=== PATIENT | male | born 1950 | race Caucasian/White ===

== ENCOUNTER 2019-03-21 18:41 | Emergency (ER) | payer MEDICARE, OTHER ==
[~2019-03-21] VITALS: Ht 175.3 cm; Wt 84.4 kg
[2019-03-21] MEDS ORDERED: LIVA2TAB (18:59)
[2019-03-21] MEDS ORDERED: BENA25CA4 PO (18:59)
[2019-03-21] MEDS ORDERED: PREG75CA2 (18:59)
[2019-03-21] MEDS ORDERED: ASPI81TA85 PO (18:59)
[2019-03-21] MEDS ORDERED: CVS400CA PO (18:59)
[2019-03-21] MEDS ORDERED: MULTCAP PO (18:59)
[2019-03-21] MEDS ORDERED: PIRO20CA2 (18:59)
[2019-03-21] MEDS ORDERED: OLME1TAB15 (18:59)
[2019-03-21] MEDS ORDERED: NS 1,000 ML IV ONE (19:00)
[2019-03-21] MEDS ORDERED: methylPREDNISolone INJ 125 MG/2 ML VIAL (J2930) IV ONE (19:00)
[2019-03-21] MEDS ORDERED: diphenhydrAMINE INJ 50MG/ML VIAL (J1200) IV ONE (19:00)
[2019-03-21] MEDS ORDERED: PRED20TA PO (21:06)
[2019-03-21 21:15] VITALS: BP 145/74
== END 2019-03-21 21:47 | disposition home or self-care (01) ==
LOC: M ED 18:41
DX: T63.441A Toxic effect of venom of bees, accidental (unintentional), initial encounter (principal); I10 Essential (primary) hypertension; Z91.030 Bee allergy status; Z79.82 Long term (current) use of aspirin; Z79.899 Other long term (current) drug therapy
CPT/HCPCS: 94760; 96360; 96361; 96375; 99284; J1200; J2930